=== PATIENT | female | born 1975 | race Caucasian/White ===

== ENCOUNTER 2017-02-27 18:29 | Emergency (ER) | payer OTHER ==
[~2017-02-27] VITALS: Ht 172.7 cm; Wt 68.0 kg
[2017-02-27 18:29] VITALS: BP_SYST 142
--- NOTE | 2017-02-27 18:29 | NUR ---
PATIENT TO BED 3 TO GOWN FOR EVALUATION.
--- NOTE | 2017-02-27 18:47 | NUR ---
DR CARBALLO AT BEDSIDE
--- NOTE | 2017-02-27 18:47 | NUR ---
ER at bedside examining patient.
--- NOTE | 2017-02-27 18:52 | NUR ---
Pt presents with tingling to BLE x1 wk. Also reports tingling to left face and neck, which started today. Pt states that she referred to the tingling as numbness, but is actually able to feel touch. Denies pain. Pt is A&O x4. No acute distress.
--- NOTE | 2017-02-27 19:01 | NUR ---
Pt to radiology for CT of head. stable
[2017-02-27 19:06] LABS: BASOPHILS # (AUTO) 0.1 K/uL (0.0-0.2); BASOPHILS % (AUTO) 0.7 % (0.0-2.0); EOSINOPHILS # (AUTO) 0.4 K/uL (0.0-0.4); EOSINOPHILS % (AUTO) 4.6 % (0.0-4.0); HEMATOCRIT 37.7 % (36-48); HEMOGLOBIN 12.9 g/dL (12.0-16.0); LYMPHOCYTES # (AUTO) 3.2 K/uL (1.0-5.5); LYMPHOCYTES % (AUTO) 32.9 % (20.5-51.5); MEAN CORPUSCULAR HEMOGLOBIN 32 pg (27-31); MEAN CORPUSCULAR HGB CONC 34 % (32-36); MEAN CORPUSCULAR VOLUME 93 fL (79.0-98.0); MONOCYTES # (AUTO) 0.5 K/uL (0.0-1.0); MONOCYTES % (AUTO) 4.7 % (1.7-9.3); NEUTROPHILS # (AUTO) 5.5 K/uL (1.8-7.7); NEUTROPHILS % (AUTO) 57.1 % (40.0-70.0); PLATELET COUNT (AUTO) 238 K/uL (130-430); RED BLOOD CELL COUNT(AUTO) 4.04 MIL/uL (4.2-6.2); RED CELL DISTRIBUTION WIDTH 12.8 % (9.0-15.0); WHITE BLOOD COUNT (AUTO) 9.7 K/uL (4.8-10.8)
[2017-02-27 19:10] LABS: BILIRUBIN,URINE NEGATIVE (NEGATIVE); BLOOD, URINE NEGATIVE (NEGATIVE); CLARITY/URINE CLEAR (CLEAR); COLOR,URINE YELLOW (YELLOW); GLUCOSE,URINE NEGATIVE (NEGATIVE); KETONES,URINE NEGATIVE (NEGATIVE); LEUKOCYTE ESTERASE ,URINE NEGATIVE (NEGATIVE); NITRITE, URINE NEGATIVE (NEGATIVE); PH,URINE 6.5 (5.0-8.0); PROTEIN URINE NEGATIVE (NEGATIVE); UROBILINOGEN,URINE 0.2 (0.2-1.0)
[2017-02-27 19:10] LABS: CALCIUM 9.1 mg/dL (8.4-11.0); CREATININE 0.95 mg/dL (0.55-1.30); POTASSIUM 4.7 mmol/L (3.5-5.1)
[2017-02-27 19:15] LABS: TOTAL BILIRUBIN 0.3 mg/dL (0.0-1.0)
[2017-02-27 19:22] LABS: BARBITURATE, URINE NEGATIVE (NEG <=200); BENZODIAZEPINE, URINE NEGATIVE (NEG <=150); CANNABINOID, URINE NEGATIVE (NEG <=50); COCAINE, URINE NEGATIVE (NEG <=150); METHAMPHETAMINES SCREEN,URINE NEGATIVE (NEG <=500); OPIATE, URINE NEGATIVE (NEG <=100); PHENCYCLIDINE SCREEN,URINE NEGATIVE (NEG <=25); UR TRICYCLIC ANTIDEPRESSANTS NEGATIVE (NEG <=300); URINE AMPHETAMINE NEGATIVE (NEG <=500); URINE METHADONE NEGATIVE (NEG <=200); URINE OXYCODONE SCREEN NEGATIVE (NEG <=100); URINE PROPOXYPHENE SCREEN NEGATIVE (NEG <=300)
[2017-02-27] MEDS ORDERED: LORazepam 1 MG TABLET PO ONE (19:45)
--- NOTE | 2017-02-27 20:01 | NUR ---
pt in bed, medicated per MD order. Pt denies distress
--- NOTE | 2017-02-27 20:12 | NUR ---
Patient given written and verbal discharge instructions and verbalizes understanding. ER MD Clark discussed with patient the results and treatment provided. Given copies of tests performed in ER. Patient in stable condition. ID arm band removed. No Rx given. Patient educated on pain management and to follow up with PMD. Pain Scale 0/10 Opportunity for questions provided and answered.
[2017-02-27 20:13] VITALS: BP_SYST 136
== END 2017-02-27 20:12 | disposition home or self-care (01) ==
LOC: SED 18:29
DX: F41.9 Anxiety disorder, unspecified (principal)
CPT/HCPCS: 36415; 70450-TC; 80053; 80307; 81003; 83880; 85025; 99285

== ENCOUNTER 2019-03-02 18:55 | Emergency (ER) | payer OTHER ==
[~2019-03-02] VITALS: Ht 172.7 cm; Wt 72.6 kg
[2019-03-02 19:04] VITALS: BP_SYST 106
--- NOTE | 2019-03-02 19:04 | NUR ---
1904 - Patient to ER bed 8 to gown for evaluation. Side rails up. Report given to BETTIE Solano.
--- NOTE | 2019-03-02 19:09 | NUR ---
Pt complains dizziness that happened on Thursday, followed up with palpitations on Thursday. Pt Also states that on Thursday she started to "feel her face go numb." Per patient, palpitations would happen while she's watching TV or sitting at work. Pt denies chest pain, N/V, shortness of breath or fever. Pt's facial appearance is symmetrical. No drooping noted. 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 No other injuries/complaints per patient or noted.
--- NOTE | 2019-03-02 19:45 | NUR ---
ER Dr. Dumont at bedside examining patient.
[2019-03-02 19:50] LABS: BASOPHILS # (AUTO) 0.1 K/uL (0.0-0.2); BASOPHILS % (AUTO) 1.4 % (0.0-2.0); EOSINOPHILS # (AUTO) 0.3 K/uL (0.0-0.4); EOSINOPHILS % (AUTO) 4.1 % (0.0-4.0); HEMATOCRIT 39.1 % (36-48); HEMOGLOBIN 13.1 g/dL (12.0-16.0); LYMPHOCYTES # (AUTO) 3.5 K/uL (1.0-5.5); LYMPHOCYTES % (AUTO) 43.3 % (20.5-51.5); MEAN CORPUSCULAR HEMOGLOBIN 32 pg (27-31); MEAN CORPUSCULAR HGB CONC 33 % (32-36); MEAN CORPUSCULAR VOLUME 96 fL (79.0-98.0); MONOCYTES # (AUTO) 0.6 K/uL (0.0-1.0); NEUTROPHILS # (AUTO) 3.5 K/uL (1.8-7.7); NEUTROPHILS % (AUTO) 44.2 % (40.0-70.0); PLATELET COUNT (AUTO) 268 K/uL (130-430); RED BLOOD CELL COUNT(AUTO) 4.07 MIL/uL (4.2-6.2); RED CELL DISTRIBUTION WIDTH 13.9 % (9.0-15.0)
[2019-03-02] MEDS ORDERED: NACL 0.9% 1,000 ML IV ONE (19:55)
[2019-03-02 20:00] LABS: CALCIUM 9.4 mg/dL (8.4-11.0); CREATININE 0.79 mg/dL (0.55-1.30); POTASSIUM 4.3 mmol/L (3.5-5.1)
[2019-03-02 20:05] LABS: ALBUMIN 3.7 g/dL (3.4-4.8); TOTAL BILIRUBIN 0.3 mg/dL (0.0-1.0)
[2019-03-02 20:10] LABS: INR 0.9 (0.8-1.2); PROTHROMBIN TIME 9.5 SECS (9.5-12.5)
--- NOTE | 2019-03-02 20:22 | NUR ---
pt resting comfortably in hospital bed. No acute distress, will continue to monitor.
--- NOTE | 2019-03-02 21:30 | NUR ---
Pt resting comfortably in hospital bed. No acute distress, will continue to monitor.
[2019-03-02 22:30] VITALS: BP_SYST 106
--- NOTE | 2019-03-02 22:30 | NUR ---
Patient given written and verbal discharge instructions and verbalizes understanding. ER MD discussed with patient the results and treatment provided. Patient in stable condition. ID arm band removed. IV catheter removed intact and dressing applied, no active bleeding. No Rx given. Patient educated on pain management and to follow up with PMD. Pain Scale 0. Opportunity for questions provided and answered. Medication side effect fact sheet provided.
== END 2019-03-02 22:30 | disposition home or self-care (01) ==
LOC: SED 18:55
DX: R00.2 Palpitations (principal); R42 Dizziness and giddiness
CPT/HCPCS: 36415; 71045; 80053; 81025; 82550; 84484; 85025; 85610; 85730; 93005; 96360; 99284; J7030